=== PATIENT | female | born 1950 ===

== ENCOUNTER 2016-09-01 18:08 | Emergency (ER) | payer OTHER ==
[2016-09-01 18:08] VITALS: BMI 30.8
--- NOTE | 2016-09-01 19:32 | C.PDOC ---
History Of Present Illness Patient presents to the emergency room for the evaluation of chest palpitations that started a few hours ago. Patient felt a rapid heart beat. Patient currently feels better here in the ER. Patient denies any chest pain, shortness of breath, headaches, dizziness, or any other complaints. Time Seen by Provider: 09/01/16 19:32 Chief Complaint (Nursing): Palpitations History Per: Patient History/Exam Limitations: no limitations Onset/Duration Of Symptoms: Hrs (Few hours) Current Symptoms Are (Timing): Gone Associated Symptoms: Other (Palpitations). denies: Chest Pain, Dizziness, Blurred Vision, Headache Quality Of Symptoms: Rapid Heart Rate Severity: Mild Exacerbating Factor(s): Pos: None Recent travel outside of the [place]: No Past Medical History Reviewed: Historical Data, Nursing Documentation, Vital Signs Vital Signs: Last Vital Signs Temp Pulse 72 09/01/16 20:27 Resp 12 09/01/16 20:27 BP 124/63 09/01/16 20:27 Pulse Ox 100 09/01/16 20:27 - Medical History PMH: Alzheimer's Disease, Anxiety, Asthma, Bipolar Disorder, Colonic Polyps, COPD, Dementia, Depression, HTN, Hypercholesterolemia, Migraine, Seizures ( EPILEPSY. LAST SEIZURE 4 MONTHS AGO; [facility]IT [facility]) Denies: Paranoia, Post Traumatic Stress Disorder, Chronic Kidney Disease, Schizophrenia Comment Only: HIV (unable to answer for these questions) Surgical History: Cholecystectomy, (x 1) Denies: Endoscopy - [facility] Procedures GROUP PSYCHOTHERAPY (08/18/15) INDIVIDUAL PSYCHOTHERAPY, COGNITIVE-BEHAVIORAL (08/18/15) INFLUENZA VACCINATION (03/06/13) INTRODUCTION OF SERUM/TOX/VACCINE INTO MUSCLE, PERC APPROACH (08/16/15) NEBULIZER THERAPY (05/28/14) Family History: States: Unknown Family Hx - Social History Hx Tobacco Use: Yes Hx Alcohol Use: No Hx Substance Use: No - Immunization History Hx Tetanus Toxoid Vaccination: No Hx Influenza Vaccination: Yes Hx Pneumococcal Vaccination: No Review Of Systems Constitutional: Negative for: Fever, Chills Cardiovascular: Positive for: Palpitations. Negative for: Chest Pain Respiratory: Negative for: Shortness of Breath Gastrointestinal: Negative for: Nausea, Vomiting, Diarrhea Neurological: Negative for: Headache, Dizziness Physical Exam - Physical Exam Appears: Well, Other (Speaking in complete sentences) Skin: Warm, Dry, No Rash Teeth: No Normal Dentition (Poor Dentition) Neck: Normal ROM, No Midline Cervical Tenderness, No Paracervical Tenderness, Supple Chest: Symmetrical, No Deformity, No Tenderness Cardiovascular: Rhythm Regular Respiratory: No Rales, No Rhonchi, No Wheezing Gastrointestinal/Abdominal: Soft, No Tenderness, No Guarding, No Rebound Back: No CVA Tenderness, No Vertebral Tenderness Extremity: Normal ROM, No Tenderness, No Calf Tenderness, No Swelling Neurological/Psych: Oriented x3, Normal Speech ED Course And Treatment - Laboratory Results Result Diagrams: 09/01/16 19:47 09/01/16 19:47 ECG: Interpreted By Me, Viewed By Me ECG Rhythm: Sinus Rhythm (73), Nonspecific Changes O2 Sat by Pulse Oximetry: 97 Pulse Ox Interpretation: Normal - Radiology CXR: Interpreted by Me, Viewed By Me CXR Interpretation: No: Infiltrates, Fracture, Pnemothorax Progress Note: cardiac work up Reevaluation Time: 21:08 Reassessment Condition: Improved Medical Decision Making Medical Decision Making: Upon provider reevaluation patient is feeling better, is medically stable, and requires no further treatment in the ED at this time. Patient will be discharged home . Counseling was provided and all questions were answered regarding diagnosis and need for follow up with Dr Tellez. There is agreement to discharge plan. Return if symptoms persist or worsen Disposition Counseled Patient/Family Regarding: Studies Performed, Diagnosis, Need For Followup - Disposition Referrals: Tristan Tellez MD [Staff Provider] - Disposition: HOME/ ROUTINE Disposition Time: 21:08 Condition: FAIR Instructions: Palpitations (ED) - Clinical Impression Clinical Impression: Palpitations - Scribe Statement The provider has reviewed the documentation as recorded by the July Munroe Provider Scribe Attestation: All medical record entries made by the Primitivoibcassie were at my direction and personally dictated by me. I have reviewed the chart and agree that the record accurately reflects my personal performance of the history, physical exam, medical decision making, and the department course for this patient. I have also personally directed, reviewed, and agree with the discharge instructions and disposition.
[2016-09-01 19:54] LABS: BASO # 0.1 K/uL (0.0-0.2); BASO % 0.7 % (0.0-2.0); EOS # 0.1 K/uL (0.0-0.7); EOS % 0.9 % (0.0-4.0); HEMATOCRIT 41.8 % (34.0-47.0); MEAN CORPUSCULAR HEMOGLOBIN 30.3 pg (27.0-31.0); MEAN CORPUSCULAR HGB CONC 33.3 g/dL (33.0-37.0); MEAN PLATELET VOLUME 8.1 fL (7.2-11.7); MONO % 8.3 % (0.0-10.0); RED CELL DISTRIBUTION WIDTH 13.4 % (11.5-14.5); WHITE BLOOD COUNT 11.6 K/uL (4.8-10.8)
[2016-09-01 20:03] LABS: POTASSIUM 3.6 mmol/L (3.6-5.2); SODIUM 142 mmol/L (132-148)
[2016-09-01 20:05] LABS: GFR AFRICAN-AMERICAN 54
[2016-09-01 20:06] LABS: ALB/GLOB RATIO 1.4 (1.0-2.1); ALKALINE PHOSPHATASE 66 U/L (38-126); ALT/SGPT 22 U/L (9-52); AST/SGOT 24 U/L (14-36); BILIRUBIN,TOTAL 0.6 mg/dL (0.2-1.3); BLOOD UREA NITROGEN 33 mg/dL (7-17); CARBON DIOXIDE 26 mmol/L (22-30); GLUCOSE,RANDOM 94 mg/dL (65-105); TOTAL PROTEIN 7.9 g/dL (6.3-8.3)
[2016-09-01 20:07] LABS: CALCIUM 9.3 mg/dl (8.6-10.4)
[2016-09-01 20:16] LABS: RBC URINE 9 /hpf (0-3); URINE BACTERIA RARE (<OCC); URINE BILIRUBIN NEGATIVE (NEGATIVE); URINE BLOOD 2+ (NEGATIVE); URINE COLOR Straw (YELLOW); URINE GLUCOSE (UA) NORMAL (Normal); URINE KETONE TRACE mg/dL (NEGATIVE); URINE LEUKOCYTE ESTERASE NEG Leu/uL (Negative); URINE PROTEIN NEGATIVE (NEGATIVE); URINE UROBILINOGEN NORMAL mg/dL (0.2-1.0); WBC URINE 1 /hpf (0-5)
[2016-09-01 20:27] VITALS: RESP 12
[2016-09-01 20:37] LABS: THYROID STIMULATING HORMONE 2.87 mIU/L (0.46-4.68)
[2016-09-01 21:09] VITALS: BP 114/61; PULSE 85; TEMP 98
[2016-09-01 21:10] VITALS: O2SAT 97
--- NOTE | 2016-09-02 08:29 | RAD ---
PROCEDURE: CHEST RADIOGRAPH, 1 VIEW HISTORY: chest pain COMPARISON: Comparison is made to the previous study dated 03/19/2012 FINDINGS: LUNGS: No evidence of new infiltrate or consolidation in the lungs. PLEURA: No pneumothorax or pleural fluid seen. CARDIOVASCULAR: Normal. OSSEOUS STRUCTURES: No significant abnormalities. VISUALIZED UPPER ABDOMEN: Normal. OTHER FINDINGS: None. IMPRESSION: No active disease.
--- NOTE | 2016-09-02 17:09 | CARD ---
APPROVED REPORT EKG Measurement Heart [id number] <Conclusion> Normal sinus rhythm Normal ECG
[2016-09-02 17:23] LABS: CHLORIDE 102 mmol/L (98-107)
== END 2016-09-01 21:20 | disposition home or self-care (01) ==
LOC: C.ER 18:08
DX: R00.2 Palpitations (principal)